=== PATIENT | female | born 1990 | race Caucasian/White ===

== ENCOUNTER 2022-09-30 21:02 | Inpatient (IN) | payer MEDICARE, MEDICAID ==
[~2022-09-30] VITALS: Ht 177.8 cm; Wt 79.4 kg
[2022-09-30] MEDS ORDERED: ARIP2TAB27 PO (22:00)
[2022-09-30 22:43] LABS: BASOPHILS % (AUTO) 0.3 % (0.0-2.0); EOSINOPHILS % (AUTO) 0.4 % (1.0-6.0); HEMATOCRIT 41.8 % (36-46); HEMOGLOBIN 14.6 g/dL (12.0-16.0); LYMPHOCYTES % (AUTO) 9.2 % (22.0-44.0); MEAN CORPUSCULAR HGB CONC 35.1 G/dL (31.0-37.0); MEAN CORPUSCULAR VOLUME 91 fL (80-100); MONOCYTES # (AUTO) 0.5 K/uL (0.1-1.0); MONOCYTES % (AUTO) 4.6 % (2.0-9.0); NEUTROPHILS # (AUTO) 9.3 K/uL (1.8-7.7); PLATELET COUNT (AUTO) 216 K/uL (150-450); RED BLOOD CELL COUNT(AUTO) 4.57 MIL/uL (4.00-5.20); RED CELL DISTRIBUTION WIDTH 13.1 % (11.5-14.5)
[2022-09-30 22:45] LABS: ANION GAP 8 mmol/L (8-16); CALCIUM, TOTAL 8.3 mg/dL (8.8-10.5); CARBON DIOXIDE 25 mmol/L (22-29); CHLORIDE 101 mmol/L (98-107); CREATININE 1.06 mg/dL (0.60-1.30); GLOMERULAR FILTR. RATE CALC 60 mL/min (>60); GLUCOSE,RANDOM 103 mg/dL (70-110); NEUTROPHILS % (AUTO) 85.5 % (40.0-70.0); POTASSIUM 3.4 mmol/L (3.5-5.1); SODIUM SERUM 134 mmol/L (136-145); UREA NITROGEN, BLOOD 14 mg/dL (7-18)
[2022-09-30 22:52] LABS: ALANINE AMINOTRANSFERASE 62 U/L (12-78); ALBUMIN 3.8 g/dL (3.4-5.0); ALKALINE PHOSPHATASE 106 U/L (46-116); ASPARTATE AMINOTRANSFERASE 33 U/L (15-37); BILIRUBIN,TOTAL 0.5 mg/dL (0.1-1.0); TOTAL PROTEIN, SERUM 6.9 g/dL (6.4-8.2)
[2022-10-01 02:47] LABS: COVID AG,FIA SOURCE NASAL SWAB
[2022-10-01] MEDS ORDERED: HALOPERIDOL 5 MG TABLET PO PRN (08:15)
[2022-10-01 13:11] VITALS: BP 96/67
[2022-10-01] MEDS: BusPIRone HCL 5 MG TABLET PO SCH ×2 (13:51→20:45)
[2022-10-01] MEDS: ZOLPIDEM TARTRATE 10 MG TABLET PO PRN (20:45)
[2022-10-01 20:53] VITALS: BP 110/68
[2022-10-02] MEDS: ARIPiprazole 10 MG TABLET PO SCH (09:21)
[2022-10-02] MEDS: BusPIRone HCL 5 MG TABLET PO SCH ×2 (09:21→21:11)
[2022-10-02 09:52] VITALS: BP 118/70
[2022-10-02] MEDS ORDERED: MAG HYDROX/AL HYDROX/SIMETH ES 30 ML SUSPENSION UDCUP PO PRN (10:15)
[2022-10-02] MEDS ORDERED: CloNIDine HCL 0.1 MG TABLET PO PRN (10:15)
[2022-10-02] MEDS ORDERED: ONDANSETRON HCL 4 MG TABLET PO PRN (10:15)
[2022-10-02] MEDS ORDERED: ACETAMINOPHEN 325 MG TABLET PO PRN (10:15)
[2022-10-02] MEDS ORDERED: GuaiFENesin/D-METHORPHAN [SUGAR-FREE] 200-20MG/10 ML SYRUP UDCUP PO PRN (10:15)
[2022-10-02] MEDS ORDERED: DOCUSATE SODIUM 100 MG CAPSULE PO PRN (10:15)
[2022-10-02] MEDS ORDERED: LOPERAMIDE HCL 2 MG CAPSULE PO PRN (10:15)
[2022-10-02] MEDS ORDERED: PETROLATUM,WHITE 28 GM JELLY TP PRN (10:15)
[2022-10-02] MEDS ORDERED: NICOTINE 14 MG/24 HOUR PATCH TD PRN (10:15)
[2022-10-02] MEDS ORDERED: MAGNESIUM HYDROXIDE SUSPENSION 30 ML UDCUP PO PRN (10:15)
[2022-10-02] MEDS ORDERED: IBUPROFEN 400 MG TABLET PO PRN (10:15)
[2022-10-02 16:47] VITALS: BP 108/75
[2022-10-02] MEDS: ZOLPIDEM TARTRATE 10 MG TABLET PO PRN (21:11)
[2022-10-02 22:02] VITALS: BP 124/66
[2022-10-03 08:43] VITALS: BP 113/87
[2022-10-03] MEDS: BusPIRone HCL 5 MG TABLET PO SCH ×2 (08:57→21:00)
[2022-10-03] MEDS: ARIPiprazole 10 MG TABLET PO SCH (08:57)
[2022-10-03] MEDS ORDERED: DiphenhydrAMINE HCL 50 MG/ML VIAL ONE (13:48)
[2022-10-03] MEDS ORDERED: LORazepam 2 MG/ML VIAL ONE (13:48)
[2022-10-03] MEDS ORDERED: HALOPERIDOL LACTATE 5 MG/ML VIAL ONE (13:48)
[2022-10-03] MEDS ORDERED: LORazepam 2 MG/ML VIAL IM ONE (14:00)
[2022-10-03] MEDS ORDERED: HALOPERIDOL LACTATE 5 MG/ML VIAL IM ONE (14:00)
[2022-10-03] MEDS ORDERED: DiphenhydrAMINE HCL 50 MG/ML VIAL IM ONE (14:00)
[2022-10-03] MEDS: BACITRACIN 28 GM OINTMENT TP SCH (18:44)
[2022-10-04] MEDS: ARIPiprazole 10 MG TABLET PO SCH (08:19)
[2022-10-04] MEDS: BACITRACIN 28 GM OINTMENT TP SCH ×2 (08:19→16:56)
[2022-10-04] MEDS: BusPIRone HCL 5 MG TABLET PO SCH ×2 (08:19→20:44)
[2022-10-04] MEDS: LORazepam 2 MG TABLET PO PRN (08:19)
[2022-10-04 08:20] VITALS: BP 119/77
[2022-10-04] MEDS ORDERED: LORazepam 2 MG/ML VIAL IM ONE ×2 (09:45→12:45)
[2022-10-04] MEDS ORDERED: ChlorproMAZINE HCL 50 MG/2 ML AMP IM ONE ×2 (09:45→12:45)
[2022-10-04] MEDS ORDERED: DiphenhydrAMINE HCL 50 MG/ML VIAL IM ONE ×2 (09:45→12:45)
[2022-10-05 08:06] VITALS: BP 101/72
[2022-10-05] MEDS: BACITRACIN 28 GM OINTMENT TP SCH ×2 (08:48→16:26)
[2022-10-05] MEDS: ARIPiprazole 10 MG TABLET PO SCH (08:48)
[2022-10-05] MEDS: BusPIRone HCL 5 MG TABLET PO SCH (08:48)
[2022-10-05] MEDS: LORazepam 2 MG TABLET PO PRN (09:55)
[2022-10-05] MEDS ORDERED: ARIPiprazole 10 MG TABLET PO ONE (10:15)
[2022-10-05] MEDS: TOPIRAMATE 25 MG TABLET PO SCH ×2 (11:13→16:26)
[2022-10-05] MEDS: VENLAFAXINE HCL 150 MG ER CAPSULE PO SCH (11:18)
[2022-10-05 16:18] VITALS: BP 115/63
[2022-10-05] MEDS: SPIRONOLACTONE 50 MG TABLET PO SCH (16:24)
[2022-10-05] MEDS: ESTRADIOL 1 MG TABLET PO SCH (16:25)
[2022-10-05] MEDS: BusPIRone HCL 15 MG TABLET PO SCH (16:25)
[2022-10-05] MEDS: LURASIDONE HCL 40 MG TABLET PO SCH (16:26)
[2022-10-05] MEDS ORDERED: PRAZOSIN HCL 2 MG CAPSULE PO SCH (21:00)
[2022-10-06] MEDS: TOPIRAMATE 25 MG TABLET PO SCH ×3 (07:59→16:56)
[2022-10-06] MEDS: BusPIRone HCL 15 MG TABLET PO SCH ×3 (08:00→16:56)
[2022-10-06] MEDS: ESTRADIOL 1 MG TABLET PO SCH ×3 (08:01→16:56)
[2022-10-06] MEDS: BACITRACIN 28 GM OINTMENT TP SCH ×3 (08:02→16:57)
[2022-10-06] MEDS: VENLAFAXINE HCL 150 MG ER CAPSULE PO SCH (08:02)
[2022-10-06] MEDS: SPIRONOLACTONE 50 MG TABLET PO SCH ×2 (08:02→16:44)
[2022-10-06 08:49] VITALS: BP 111/67
[2022-10-06] MEDS ORDERED: ARIPiprazole 15 MG TABLET PO SCH (09:00)
[2022-10-06] MEDS ORDERED: TOPI25 PO (13:04)
[2022-10-06] MEDS ORDERED: PRAZ2 PO (13:04)
[2022-10-06] MEDS ORDERED: ARIP30TA PO (13:04)
[2022-10-06] MEDS ORDERED: BUSP15 PO (13:04)
[2022-10-06] MEDS ORDERED: LURA40TA4 PO (13:04)
[2022-10-06] MEDS ORDERED: ESTR-95 PO (13:04)
[2022-10-06] MEDS ORDERED: VENL150C4 PO (13:04)
[2022-10-06] MEDS ORDERED: SPIR50TA PO (13:04)
[2022-10-06] MEDS: LURASIDONE HCL 40 MG TABLET PO SCH (16:57)
== END 2022-10-06 14:40 | disposition home or self-care (01) | DRG 885 ==
LOC: EMS 21:09 → 3EI 10-01 09:01 → 3EX 10-01 21:24 → 3EC 10-03 16:31
PROVIDERS: ADMIT Psychiatry & Neurology Psychiatry; ATTEND Psychiatry & Neurology Psychiatry
DX: F25.0 Schizoaffective disorder, bipolar type (principal); E87.1 Hypo-osmolality and hyponatremia; R45.851 Suicidal ideations; Z20.822 Contact with and (suspected) exposure to COVID-19; E87.6 Hypokalemia; F12.10 Cannabis abuse, uncomplicated; F43.12 Post-traumatic stress disorder, chronic; F64.0 Transsexualism; Z79.899 Other long term (current) drug therapy; Z87.891 Personal history of nicotine dependence; Z88.0 Allergy status to penicillin
CPT/HCPCS: 80053; 85025; 93005; 99285; G0378; G0480; J1200; J1630; J2060; J3230

== ENCOUNTER 2022-12-17 13:18 | Emergency (ER) | payer MEDICARE, MEDICAID ==
[~2022-12-17] VITALS: Ht 180.3 cm; Wt 84.5 kg
[~2022-12-17 13:18] MED LIST: ARIP30TA PO; BUSP15 PO; ESTR-95 PO; LURA40TA4 PO; PRAZ2 PO; SPIR50TA PO; TOPI25 PO; VENL150C4 PO
[2022-12-17 13:23] VITALS: BP 119/70
[2022-12-17] MEDS ORDERED: SPIR50TA27 PO ×3 (13:32→14:05)
[2022-12-17] MEDS ORDERED: PANT-31 PO ×3 (13:32→14:05)
[2022-12-17] MEDS ORDERED: CHLO50TA61 PO ×3 (13:32→14:05)
[2022-12-17] MEDS ORDERED: BUSP15 PO ×2 (13:51→14:05)
[2022-12-17] MEDS ORDERED: VENL150C4 PO ×2 (13:51→14:05)
[2022-12-17] MEDS ORDERED: ARIP30TA PO ×2 (13:51→14:05)
[2022-12-17] MEDS ORDERED: LEVAHFA IH ×2 (13:51→14:05)
[2022-12-17] MEDS ORDERED: ESTR-95 PO ×2 (13:51→14:05)
== END 2022-12-17 15:12 | disposition home or self-care (01) ==
LOC: EMS 13:33
DX: F25.0 Schizoaffective disorder, bipolar type (principal); F41.9 Anxiety disorder, unspecified; J45.909 Unspecified asthma, uncomplicated; F17.210 Nicotine dependence, cigarettes, uncomplicated; Z76.0 Encounter for issue of repeat prescription
CPT/HCPCS: 99281; Z7502

== ENCOUNTER 2023-03-09 12:30 | Inpatient (IN) | payer MEDICARE, MEDICAID ==
[~2023-03-09] VITALS: Ht 177.8 cm; Wt 79.9 kg
[~2023-03-09 12:30] MED LIST changes: +CHLO50TA61 PO; +LEVAHFA IH; -LURA40TA4 PO; +PANT-31 PO; -PRAZ2 PO; -SPIR50TA PO; +SPIR50TA27 PO; -TOPI25 PO
[2023-03-09] MEDS ORDERED: SODIUM CHLORIDE 0.9% 1,000 ML IV ONE (13:30)
[2023-03-09 13:37] LABS: BASOPHILS % (AUTO) 0.2 % (0.0-2.0); EOSINOPHILS % (AUTO) 0.1 % (1.0-6.0); HEMATOCRIT 42.8 % (36-46); HEMOGLOBIN 14.9 g/dL (12.0-16.0); LYMPHOCYTES % (AUTO) 9.9 % (22.0-44.0); MEAN CORPUSCULAR HEMOGLOBIN 32.1 pg (26.0-34.0); MEAN CORPUSCULAR HGB CONC 34.9 G/dL (31.0-37.0); MEAN CORPUSCULAR VOLUME 92 fL (80-100); MONOCYTES # (AUTO) 0.7 K/uL (0.1-1.0); MONOCYTES % (AUTO) 6.5 % (2.0-9.0); NEUTROPHILS # (AUTO) 8.6 K/uL (1.8-7.7); NEUTROPHILS % (AUTO) 83.3 % (40.0-70.0); PLATELET COUNT (AUTO) 212 K/uL (150-450); RED BLOOD CELL COUNT(AUTO) 4.65 MIL/uL (4.00-5.20); RED CELL DISTRIBUTION WIDTH 13.5 % (11.5-14.5)
[2023-03-09 13:51] LABS: ANION GAP 20 mmol/L (8-16); CALCIUM, TOTAL 9.1 mg/dL (8.8-10.5); CARBON DIOXIDE 21 mmol/L (22-29); CHLORIDE 101 mmol/L (98-107); CREATININE 2.03 mg/dL (0.60-1.30); GLOMERULAR FILTR. RATE CALC 28 mL/min (>60); GLUCOSE,RANDOM 109 mg/dL (70-110); POTASSIUM 3.8 mmol/L (3.5-5.1); SODIUM SERUM 142 mmol/L (136-145)
[2023-03-09 13:56] LABS: ALANINE AMINOTRANSFERASE 66 U/L (12-78); ALBUMIN 3.8 g/dL (3.4-5.0); ALKALINE PHOSPHATASE 100 U/L (46-116); ASPARTATE AMINOTRANSFERASE 27 U/L (15-37); BILIRUBIN,TOTAL 0.3 mg/dL (0.1-1.0); TOTAL PROTEIN, SERUM 7.5 g/dL (6.4-8.2)
[2023-03-09 14:05] LABS: INR 1.1 (0.9-1.1); SALICYLATE 0.9 mg/dL (2.8-20.0)
[2023-03-09 14:11] LABS: ACETAMINOPHEN < 2 mcg/mL (10-30); CREATINE KINASE, TOTAL ONLY 49 U/L (26-192); LIPASE 27 U/L (16-77)
[2023-03-09 14:18] LABS: COVID AG,FIA SOURCE NASOPHARYNGEAL
[2023-03-09] MEDS ORDERED: SODIUM CHLORIDE 0.9% 2,000 ML IV ONE (14:45)
[2023-03-09 15:53] LABS: AMPHET/METH SCREEN,URINE NEGATIVE (NEGATIVE); BARBITURATE SCREEN, URINE NEGATIVE (NEGATIVE); BENZODIAZEPINES SCREEN,URINE NEGATIVE (NEGATIVE); CANNABINOID SCREEN,URINE NEGATIVE (NEGATIVE); COCAINE SCREEN,URINE NEGATIVE (NEGATIVE); METHADONE SCREEN, URINE NEGATIVE (NEGATIVE); OPIATE SCREEN,URINE NEGATIVE (NEGATIVE); PHENCYCLIDINE SCREEN,URINE NEGATIVE (NEGATIVE)
[2023-03-09 17:22] LABS: CALCIUM, TOTAL 7.9 mg/dL (8.8-10.5); CREATININE 1.89 mg/dL (0.60-1.30); POTASSIUM 3.7 mmol/L (3.5-5.1)
[2023-03-09] MEDS ORDERED: POTASSIUM CHL 20 MEQ/D5-0.45NS 1,000 ML IV ONE (17:30)
[2023-03-09 17:38] LABS: INR 1.1 (0.9-1.1); PROTHROMBIN TIME 11.6 SEC (9.4-11.6)
[2023-03-09] MEDS ORDERED: PB/HYOSCY/ATR/SCOP/LIDO/MAALOX 55 ML BOTTLE PO ONE (17:45)
[2023-03-09] MEDS ORDERED: PANTOPRAZOLE SODIUM 40 MG DR TABLET PO ONE (17:45)
[2023-03-09 20:51] LABS: CALCIUM, TOTAL 8.2 mg/dL (8.8-10.5); CREATININE 1.76 mg/dL (0.60-1.30); POTASSIUM 3.7 mmol/L (3.5-5.1)
[2023-03-10] MEDS ORDERED: HALOPERIDOL 5 MG TABLET PO PRN (00:30)
[2023-03-10 14:00] VITALS: BP 98/73; PULSE 67; RESP 18; TEMP 97.6
[2023-03-10 16:49] LABS: CALCIUM, TOTAL 8.6 mg/dL (8.8-10.5); CREATININE 1.12 mg/dL (0.60-1.30); POTASSIUM 3.9 mmol/L (3.5-5.1)
[2023-03-10] MEDS: ESTRADIOL 1 MG TABLET PO SCH (18:11)
[2023-03-10] MEDS: SPIRONOLACTONE 50 MG TABLET PO SCH (18:12)
[2023-03-10] MEDS: TOPIRAMATE 25 MG TABLET PO SCH (18:12)
[2023-03-10 20:42] VITALS: RESP 18
[2023-03-10] MEDS: ZOLPIDEM TARTRATE 10 MG TABLET PO PRN (22:38)
[2023-03-11] MEDS ORDERED: NICOTINE 14 MG/24 HOUR PATCH TD PRN (04:30)
[2023-03-11] MEDS ORDERED: GuaiFENesin/D-METHORPHAN [SUGAR-FREE] 200-20MG/10 ML SYRUP UDCUP PO PRN (04:30)
[2023-03-11] MEDS ORDERED: MAG HYDROX/AL HYDROX/SIMETH ES 30 ML SUSPENSION UDCUP PO PRN (04:30)
[2023-03-11] MEDS ORDERED: DOCUSATE SODIUM 100 MG CAPSULE PO PRN (04:30)
[2023-03-11] MEDS ORDERED: MAGNESIUM HYDROXIDE SUSPENSION 30 ML UDCUP PO PRN (04:30)
[2023-03-11] MEDS ORDERED: PETROLATUM,WHITE 28 GM JELLY TP PRN (04:30)
[2023-03-11] MEDS ORDERED: IBUPROFEN 400 MG TABLET PO PRN (04:30)
[2023-03-11] MEDS ORDERED: ONDANSETRON HCL 4 MG TABLET PO PRN (04:30)
[2023-03-11] MEDS ORDERED: ACETAMINOPHEN 325 MG TABLET PO PRN (04:30)
[2023-03-11] MEDS ORDERED: LOPERAMIDE HCL 2 MG CAPSULE PO PRN (04:30)
[2023-03-11] MEDS ORDERED: CloNIDine HCL 0.1 MG TABLET PO PRN (04:30)
[2023-03-11] MEDS ORDERED: LEVALBUTEROL TARTRATE HFA 45 MCG/PUFF 15 GM INHALER IH PRN (04:30)
[2023-03-11] MEDS: ESTRADIOL 1 MG TABLET PO SCH ×2 (08:35→16:13)
[2023-03-11] MEDS: TOPIRAMATE 25 MG TABLET PO SCH ×2 (08:35→16:13)
[2023-03-11] MEDS: LORazepam 2 MG TABLET PO PRN ×2 (08:36→20:09)
[2023-03-11] MEDS: SPIRONOLACTONE 50 MG TABLET PO SCH ×2 (08:37→16:12)
[2023-03-11] MEDS: PANTOPRAZOLE SODIUM 40 MG DR TABLET PO SCH (08:39)
[2023-03-11 08:58] VITALS: BP 127/82; PULSE 74; RESP 17; TEMP 97.3
[2023-03-11] MEDS ORDERED: PANTOPRAZOLE SODIUM 40 MG DR TABLET PO SCH (09:00)
[2023-03-11] MEDS ORDERED: SPIRONOLACTONE 50 MG TABLET PO SCH (09:00)
[2023-03-11] MEDS: VENLAFAXINE HCL 150 MG ER CAPSULE PO SCH (13:11)
[2023-03-11] MEDS: ARIPiprazole 15 MG TABLET PO SCH (13:11)
[2023-03-11] MEDS: BusPIRone HCL 15 MG TABLET PO SCH (16:28)
[2023-03-11 20:14] VITALS: BP 100/65; PULSE 76; RESP 19; TEMP 98.4
[2023-03-11] MEDS: ZOLPIDEM TARTRATE 10 MG TABLET PO PRN (20:55)
[2023-03-11] MEDS ORDERED: ChlorproMAZINE HCL 50 MG TABLET PO SCH (21:00)
[2023-03-12] MEDS: SPIRONOLACTONE 50 MG TABLET PO SCH (09:00)
[2023-03-12] MEDS: BusPIRone HCL 15 MG TABLET PO SCH (09:08)
[2023-03-12] MEDS: VENLAFAXINE HCL 150 MG ER CAPSULE PO SCH (09:08)
[2023-03-12] MEDS: PANTOPRAZOLE SODIUM 40 MG DR TABLET PO SCH (09:09)
[2023-03-12] MEDS: ARIPiprazole 15 MG TABLET PO SCH (09:09)
[2023-03-12] MEDS: TOPIRAMATE 25 MG TABLET PO SCH (09:09)
[2023-03-12] MEDS: ESTRADIOL 1 MG TABLET PO SCH (09:09)
[2023-03-12 09:13] VITALS: BP 106/61; PULSE 79; RESP 18; TEMP 98
[2023-03-12] MEDS ORDERED: ESTR-95 PO ×2 (13:14→20:54)
[2023-03-12] MEDS ORDERED: SPIR50TA27 PO ×2 (13:14→20:54)
[2023-03-12] MEDS ORDERED: TOPI25 PO ×2 (13:15→20:54)
[2023-03-12] MEDS ORDERED: VENL-68 PO (20:54)
[2023-03-12] MEDS ORDERED: BUSP15 PO (20:54)
[2023-03-12] MEDS ORDERED: ARIP15TA27 PO (20:54)
[2023-03-12] MEDS ORDERED: CHLO50TA61 PO (20:54)
[2023-03-12] MEDS ORDERED: PANT-31 PO (20:54)
== END 2023-03-12 17:42 | disposition home or self-care (01) | DRG 885 ==
LOC: EMS 12:30 → 3EX 03-10 11:18
PROVIDERS: ADMIT Psychiatry & Neurology Psychiatry; ATTEND Psychiatry & Neurology Psychiatry
DX: F25.1 Schizoaffective disorder, depressive type (principal); N17.9 Acute kidney failure, unspecified; R45.851 Suicidal ideations; T39.312A Poisoning by propionic acid derivatives, intentional self-harm, initial encounter; F60.9 Personality disorder, unspecified; G40.909 Epilepsy, unspecified, not intractable, without status epilepticus; F64.0 Transsexualism; Z20.822 Contact with and (suspected) exposure to COVID-19; J45.909 Unspecified asthma, uncomplicated; F41.9 Anxiety disorder, unspecified; K21.9 Gastro-esophageal reflux disease without esophagitis; F43.10 Post-traumatic stress disorder, unspecified; Z79.899 Other long term (current) drug therapy; Z88.0 Allergy status to penicillin; Z88.8 Allergy status to other drugs, medicaments and biological substances; Z87.891 Personal history of nicotine dependence; Y92.89 Other specified places as the place of occurrence of the external cause
CPT/HCPCS: 71045; 80048; 80053; 80307; 82550; 83605; 83690; 84703; 85025; 85610; 93005; 99291; G0378; G0480; G0481; J3480; J7030; 36415-L1; 36415-TC

== ENCOUNTER 2023-03-14 23:56 | Inpatient (IN) | payer MEDICARE, MEDICAID ==
[~2023-03-14] VITALS: Ht 177.8 cm; Wt 80.0 kg
[~2023-03-14 23:56] MED LIST changes: +ARIP15TA27 PO; -LEVAHFA IH; +TOPI25 PO; +VENL-68 PO
[2023-03-15 01:55] LABS: BASOPHILS % (AUTO) 0.4 % (0.0-2.0); EOSINOPHILS % (AUTO) 0.7 % (1.0-6.0); HEMATOCRIT 40.1 % (36-46); LYMPHOCYTES # (AUTO) 1.1 K/uL (1.0-4.8); LYMPHOCYTES % (AUTO) 8.4 % (22.0-44.0); MEAN CORPUSCULAR HEMOGLOBIN 31.9 pg (26.0-34.0); MEAN CORPUSCULAR VOLUME 91 fL (80-100); MONOCYTES % (AUTO) 7.3 % (2.0-9.0); NEUTROPHILS # (AUTO) 11.4 K/uL (1.8-7.7); NEUTROPHILS % (AUTO) 83.2 % (40.0-70.0); PLATELET COUNT (AUTO) 184 K/uL (150-450); RED BLOOD CELL COUNT(AUTO) 4.39 MIL/uL (4.00-5.20); RED CELL DISTRIBUTION WIDTH 13.2 % (11.5-14.5)
[2023-03-15 02:11] LABS: ANION GAP 7 mmol/L (8-16); CALCIUM, TOTAL 9.2 mg/dL (8.8-10.5); CARBON DIOXIDE 29 mmol/L (22-29); CHLORIDE 101 mmol/L (98-107); GLOMERULAR FILTR. RATE CALC 58 mL/min (>60); GLUCOSE,RANDOM 116 mg/dL (70-110); POTASSIUM 3.9 mmol/L (3.5-5.1); SODIUM SERUM 137 mmol/L (136-145)
[2023-03-15 02:16] LABS: ALANINE AMINOTRANSFERASE 23 U/L (12-78); ALBUMIN 3.6 g/dL (3.4-5.0); ALKALINE PHOSPHATASE 102 U/L (46-116); ASPARTATE AMINOTRANSFERASE 14 U/L (15-37); BILIRUBIN,TOTAL 0.6 mg/dL (0.1-1.0); TOTAL PROTEIN, SERUM 7.7 g/dL (6.4-8.2)
[2023-03-15 05:03] LABS: COVID AG,FIA SOURCE NASOPHARYNGEAL
[2023-03-15] MEDS ORDERED: HALOPERIDOL 5 MG TABLET PO PRN (07:00)
[2023-03-15] MEDS ORDERED: LORazepam 2 MG TABLET PO PRN (07:00)
[2023-03-15 13:37] VITALS: BP 105/72; PULSE 95; RESP 16; TEMP 98; O2SAT 100
[2023-03-15 20:04] VITALS: BP 115/74; PULSE 66; RESP 18; TEMP 97.9; O2SAT 100
[2023-03-15] MEDS ORDERED: PANTOPRAZOLE SODIUM 40 MG DR TABLET PO ONE (22:00)
[2023-03-15] MEDS: MAG HYDROX/AL HYDROX/SIMETH 30 ML SUSP UDCUP PO PRN ×2 (22:23→22:31)
[2023-03-15] MEDS: ZOLPIDEM TARTRATE 10 MG TABLET PO PRN (22:30)
[2023-03-16] MEDS: PANTOPRAZOLE SODIUM 40 MG DR TABLET PO SCH (09:27)
[2023-03-16] MEDS: TOPIRAMATE 25 MG TABLET PO SCH ×2 (09:27→17:19)
[2023-03-16] MEDS: VENLAFAXINE HCL 150 MG ER CAPSULE PO SCH (09:28)
[2023-03-16] MEDS: ARIPiprazole 15 MG TABLET PO SCH (09:28)
[2023-03-16] MEDS: BusPIRone HCL 15 MG TABLET PO SCH ×2 (09:28→21:36)
[2023-03-16 09:33] VITALS: RESP 18
[2023-03-16 21:05] VITALS: BP 99/66; PULSE 63; RESP 20; TEMP 97.6; O2SAT 98
[2023-03-16] MEDS: ZOLPIDEM TARTRATE 10 MG TABLET PO PRN (21:36)
[2023-03-16] MEDS: ChlorproMAZINE HCL 50 MG TABLET PO SCH (21:36)
[2023-03-17] MEDS: ARIPiprazole 15 MG TABLET PO SCH (08:35)
[2023-03-17] MEDS: VENLAFAXINE HCL 150 MG ER CAPSULE PO SCH (08:36)
[2023-03-17] MEDS: BusPIRone HCL 15 MG TABLET PO SCH ×2 (08:36→20:05)
[2023-03-17] MEDS: TOPIRAMATE 25 MG TABLET PO SCH ×2 (08:36→16:05)
[2023-03-17] MEDS: PANTOPRAZOLE SODIUM 40 MG DR TABLET PO SCH (08:37)
[2023-03-17 09:06] LABS: COVID AG,FIA SOURCE NASAL SWAB
[2023-03-17 09:20] VITALS: BP 116/82; PULSE 68; RESP 18; TEMP 97.4; O2SAT 96
[2023-03-17] MEDS: SPIRONOLACTONE 50 MG TABLET PO SCH (18:18)
[2023-03-17] MEDS: ESTRADIOL 1 MG TABLET PO SCH (18:18)
[2023-03-17] MEDS: ChlorproMAZINE HCL 50 MG TABLET PO SCH (20:05)
[2023-03-17] MEDS: ZOLPIDEM TARTRATE 10 MG TABLET PO PRN (20:05)
[2023-03-17 20:50] VITALS: BP 98/61; PULSE 77; RESP 18; TEMP 98.1; O2SAT 97
[2023-03-18 09:16] VITALS: BP 95/62; PULSE 63; RESP 18; TEMP 97.6; O2SAT 99
[2023-03-18] MEDS: ESTRADIOL 1 MG TABLET PO SCH ×2 (09:42→16:16)
[2023-03-18] MEDS: ARIPiprazole 15 MG TABLET PO SCH (09:43)
[2023-03-18] MEDS: SPIRONOLACTONE 50 MG TABLET PO SCH ×2 (09:43→16:16)
[2023-03-18] MEDS: BusPIRone HCL 15 MG TABLET PO SCH ×2 (09:44→20:37)
[2023-03-18] MEDS: VENLAFAXINE HCL 150 MG ER CAPSULE PO SCH (09:44)
[2023-03-18] MEDS: PANTOPRAZOLE SODIUM 40 MG DR TABLET PO SCH (09:44)
[2023-03-18] MEDS: TOPIRAMATE 25 MG TABLET PO SCH ×2 (09:45→16:16)
[2023-03-18] MEDS: ChlorproMAZINE HCL 50 MG TABLET PO SCH (20:37)
[2023-03-18] MEDS: ZOLPIDEM TARTRATE 10 MG TABLET PO PRN (20:37)
[2023-03-18 20:49] VITALS: BP 98/61; PULSE 63; RESP 18; TEMP 98.3; O2SAT 98
[2023-03-19 01:00] VITALS: TEMP 98.1
[2023-03-19 04:21] VITALS: TEMP 97.9
[2023-03-19] MEDS: BusPIRone HCL 15 MG TABLET PO SCH ×2 (09:27→21:42)
[2023-03-19] MEDS: TOPIRAMATE 25 MG TABLET PO SCH ×2 (09:27→18:35)
[2023-03-19] MEDS: ARIPiprazole 15 MG TABLET PO SCH (09:27)
[2023-03-19] MEDS: SPIRONOLACTONE 50 MG TABLET PO SCH ×2 (09:27→18:35)
[2023-03-19] MEDS: VENLAFAXINE HCL 150 MG ER CAPSULE PO SCH (09:28)
[2023-03-19] MEDS: PANTOPRAZOLE SODIUM 40 MG DR TABLET PO SCH (09:29)
[2023-03-19 10:12] VITALS: BP 88/61; PULSE 76; RESP 17; TEMP 98; O2SAT 100
[2023-03-19] MEDS: ESTRADIOL 1 MG TABLET PO SCH ×2 (11:17→18:35)
[2023-03-19 12:57] VITALS: TEMP 98.8
[2023-03-19 16:35] VITALS: TEMP 98.7
[2023-03-19 21:40] VITALS: BP 104/68; PULSE 72; RESP 18; TEMP 97.9; O2SAT 99
[2023-03-19] MEDS: ChlorproMAZINE HCL 50 MG TABLET PO SCH (21:43)
[2023-03-19] MEDS: ZOLPIDEM TARTRATE 10 MG TABLET PO PRN (21:44)
[2023-03-20] MEDS: ARIPiprazole 15 MG TABLET PO SCH (08:05)
[2023-03-20] MEDS: TOPIRAMATE 25 MG TABLET PO SCH ×2 (08:05→16:43)
[2023-03-20] MEDS: BusPIRone HCL 15 MG TABLET PO SCH ×2 (08:06→21:19)
[2023-03-20] MEDS: VENLAFAXINE HCL 150 MG ER CAPSULE PO SCH (08:06)
[2023-03-20] MEDS: SPIRONOLACTONE 50 MG TABLET PO SCH ×2 (08:06→16:42)
[2023-03-20] MEDS: ESTRADIOL 1 MG TABLET PO SCH ×2 (08:07→16:42)
[2023-03-20] MEDS: PANTOPRAZOLE SODIUM 40 MG DR TABLET PO SCH (08:08)
[2023-03-20 08:51] VITALS: BP 103/66; PULSE 87; RESP 16; TEMP 98.3; O2SAT 98
[2023-03-20 13:20] VITALS: BP 103/67; PULSE 85; RESP 17; TEMP 97.9; O2SAT 97
[2023-03-20 16:07] VITALS: BP 106/68; PULSE 88; RESP 16; TEMP 98; O2SAT 98
[2023-03-20] MEDS: ChlorproMAZINE HCL 50 MG TABLET PO SCH (21:19)
[2023-03-20] MEDS: ZOLPIDEM TARTRATE 10 MG TABLET PO PRN (21:20)
[2023-03-20 22:46] VITALS: BP 105/71; PULSE 77; RESP 18; TEMP 97.1; O2SAT 98
[2023-03-21] MEDS: SPIRONOLACTONE 50 MG TABLET PO SCH ×2 (08:49→16:40)
[2023-03-21] MEDS: BusPIRone HCL 15 MG TABLET PO SCH ×2 (08:49→21:26)
[2023-03-21] MEDS: ESTRADIOL 1 MG TABLET PO SCH ×2 (08:49→16:40)
[2023-03-21] MEDS: ARIPiprazole 15 MG TABLET PO SCH (08:49)
[2023-03-21] MEDS: TOPIRAMATE 25 MG TABLET PO SCH ×2 (08:50→16:40)
[2023-03-21] MEDS: VENLAFAXINE HCL 150 MG ER CAPSULE PO SCH (08:50)
[2023-03-21] MEDS: PANTOPRAZOLE SODIUM 40 MG DR TABLET PO SCH (08:50)
[2023-03-21 09:43] VITALS: BP 98/60; PULSE 73; RESP 17; TEMP 98.4
[2023-03-21 13:05] VITALS: BP 102/66; PULSE 82; RESP 18; TEMP 98; O2SAT 98
[2023-03-21 16:51] VITALS: RESP 16; TEMP 98.1
[2023-03-21] MEDS: ChlorproMAZINE HCL 50 MG TABLET PO SCH (21:26)
[2023-03-21] MEDS: ZOLPIDEM TARTRATE 10 MG TABLET PO PRN (21:28)
[2023-03-21 22:10] VITALS: BP 97/68; PULSE 86; RESP 18; TEMP 98.1; O2SAT 97
[2023-03-22 01:47] VITALS: RESP 18
[2023-03-22 05:09] VITALS: RESP 18
[2023-03-22 08:22] VITALS: BP 104/69; PULSE 74; RESP 18; TEMP 97.8
[2023-03-22] MEDS: ESTRADIOL 1 MG TABLET PO SCH ×2 (08:37→16:45)
[2023-03-22] MEDS: VENLAFAXINE HCL 150 MG ER CAPSULE PO SCH (08:38)
[2023-03-22] MEDS: SPIRONOLACTONE 50 MG TABLET PO SCH ×2 (08:38→16:45)
[2023-03-22] MEDS: TOPIRAMATE 25 MG TABLET PO SCH ×2 (08:38→16:45)
[2023-03-22] MEDS: BusPIRone HCL 15 MG TABLET PO SCH ×2 (08:38→21:19)
[2023-03-22] MEDS: ARIPiprazole 15 MG TABLET PO SCH (08:38)
[2023-03-22] MEDS: PANTOPRAZOLE SODIUM 40 MG DR TABLET PO SCH (08:39)
[2023-03-22 12:12] VITALS: RESP 18; TEMP 98
[2023-03-22 16:07] VITALS: RESP 17; TEMP 97.8
[2023-03-22 20:29] VITALS: BP 103/65; PULSE 89; RESP 18; TEMP 97.7
[2023-03-22] MEDS: ZOLPIDEM TARTRATE 10 MG TABLET PO PRN (21:19)
[2023-03-22] MEDS: ChlorproMAZINE HCL 50 MG TABLET PO SCH (21:19)
[2023-03-23 00:15] VITALS: RESP 18
[2023-03-23 04:06] VITALS: RESP 18
[2023-03-23 08:30] VITALS: BP 105/71; PULSE 92; RESP 18; TEMP 97.6
[2023-03-23] MEDS: TOPIRAMATE 25 MG TABLET PO SCH ×2 (11:02→17:32)
[2023-03-23] MEDS: ESTRADIOL 1 MG TABLET PO SCH ×2 (11:03→17:31)
[2023-03-23] MEDS: VENLAFAXINE HCL 150 MG ER CAPSULE PO SCH (11:03)
[2023-03-23] MEDS: ARIPiprazole 15 MG TABLET PO SCH (11:03)
[2023-03-23] MEDS: PANTOPRAZOLE SODIUM 40 MG DR TABLET PO SCH (11:03)
[2023-03-23] MEDS: BusPIRone HCL 15 MG TABLET PO SCH ×2 (11:04→20:18)
[2023-03-23] MEDS: SPIRONOLACTONE 50 MG TABLET PO SCH ×2 (11:04→17:31)
[2023-03-23] MEDS: ChlorproMAZINE HCL 50 MG TABLET PO SCH (11:05)
[2023-03-23 12:30] VITALS: RESP 18; TEMP 97.6
[2023-03-23 16:30] VITALS: RESP 18; TEMP 98
[2023-03-23] MEDS: ZOLPIDEM TARTRATE 10 MG TABLET PO PRN (20:35)
[2023-03-23 21:34] VITALS: BP 98/66; PULSE 92; RESP 19; TEMP 98.3; O2SAT 97
[2023-03-24 00:22] VITALS: BP 110/80; PULSE 90; RESP 18; TEMP 98.2; O2SAT 98
[2023-03-24 05:19] VITALS: TEMP 98; O2SAT 97
[2023-03-24] MEDS: ARIPiprazole 15 MG TABLET PO SCH (07:49)
[2023-03-24] MEDS: ESTRADIOL 1 MG TABLET PO SCH ×2 (07:49→15:57)
[2023-03-24] MEDS: TOPIRAMATE 25 MG TABLET PO SCH ×2 (07:49→15:57)
[2023-03-24] MEDS: VENLAFAXINE HCL 150 MG ER CAPSULE PO SCH (07:50)
[2023-03-24] MEDS: SPIRONOLACTONE 50 MG TABLET PO SCH ×2 (07:50→15:57)
[2023-03-24] MEDS: BusPIRone HCL 15 MG TABLET PO SCH ×2 (07:51→21:03)
[2023-03-24] MEDS: PANTOPRAZOLE SODIUM 40 MG DR TABLET PO SCH (07:52)
[2023-03-24 08:07] VITALS: BP 101/76; PULSE 89; RESP 17; TEMP 97.9; O2SAT 97
[2023-03-24 12:26] VITALS: RESP 18; TEMP 98.1
[2023-03-24 16:34] VITALS: TEMP 98
[2023-03-24] MEDS: NICOTINE 7 MG/24 HOUR PATCH TD SCH (18:15)
[2023-03-24] MEDS: ChlorproMAZINE HCL 50 MG TABLET PO SCH (21:03)
[2023-03-24] MEDS: ZOLPIDEM TARTRATE 10 MG TABLET PO PRN (21:04)
[2023-03-24 21:29] VITALS: BP 101/72; PULSE 83; RESP 18; TEMP 97.8; O2SAT 97
[2023-03-25] VITALS (7 sets, daily range): BP systolic 108–116; BP diastolic 68–85; PULSE 81–85; RESP 17–19; TEMP 97.1–98.3; O2SAT 97–98
[2023-03-25] MEDS: ESTRADIOL 1 MG TABLET PO SCH ×2 (08:37→16:46)
[2023-03-25] MEDS: ARIPiprazole 15 MG TABLET PO SCH (08:38)
[2023-03-25] MEDS: SPIRONOLACTONE 50 MG TABLET PO SCH ×2 (08:38→16:46)
[2023-03-25] MEDS: TOPIRAMATE 25 MG TABLET PO SCH ×2 (08:38→16:46)
[2023-03-25] MEDS: PANTOPRAZOLE SODIUM 40 MG DR TABLET PO SCH (08:39)
[2023-03-25] MEDS: VENLAFAXINE HCL 150 MG ER CAPSULE PO SCH (08:39)
[2023-03-25] MEDS: BusPIRone HCL 15 MG TABLET PO SCH ×2 (08:39→20:59)
[2023-03-25] MEDS: NICOTINE 7 MG/24 HOUR PATCH TD SCH (08:40)
[2023-03-25 08:45] LABS: APPEARANCE,URINE CLEAR (CLEAR); BILIRUBIN,URINE NEGATIVE (NEGATIVE); GLUCOSE, URINE (UA) NEGATIVE (NEGATIVE); KETONES,URINE TRACE mg/dL (NEGATIVE); LEUKOCYTE ESTERASE ,URINE NEGATIVE (NEGATIVE); NITRATE,URINE NEGATIVE (NEGATIVE); OCCULT BLOOD,URINE NEGATIVE (NEGATIVE); PH,URINE 5.5 (5.0-8.0); PROTEIN,URINE NEGATIVE (NEGATIVE); SPECIFIC GRAVITIY, URINE 1.026 (1.003-1.030); UROBILINOGEN,URINE <=1.0 mg/dL (<=1.0)
[2023-03-25 08:54] LABS: AMPHET/METH SCREEN,URINE NEGATIVE (NEGATIVE); BARBITURATE SCREEN, URINE NEGATIVE (NEGATIVE); BENZODIAZEPINES SCREEN,URINE NEGATIVE (NEGATIVE); CANNABINOID SCREEN,URINE POSITIVE (NEGATIVE); COCAINE SCREEN,URINE NEGATIVE (NEGATIVE); METHADONE SCREEN, URINE NEGATIVE (NEGATIVE); OPIATE SCREEN,URINE NEGATIVE (NEGATIVE); PHENCYCLIDINE SCREEN,URINE NEGATIVE (NEGATIVE)
[2023-03-25] MEDS: ChlorproMAZINE HCL 50 MG TABLET PO SCH (20:59)
[2023-03-25] MEDS: ZOLPIDEM TARTRATE 10 MG TABLET PO PRN (20:59)
[2023-03-26 00:43] VITALS: RESP 18; TEMP 97
[2023-03-26 04:02] VITALS: RESP 18; TEMP 97.8
[2023-03-26 08:28] VITALS: BP 114/69; PULSE 77; RESP 18; TEMP 98
[2023-03-26] MEDS: NICOTINE 7 MG/24 HOUR PATCH TD SCH (09:00)
[2023-03-26] MEDS: TOPIRAMATE 25 MG TABLET PO SCH ×2 (10:16→16:07)
[2023-03-26] MEDS: BusPIRone HCL 15 MG TABLET PO SCH ×2 (10:17→20:48)
[2023-03-26] MEDS: SPIRONOLACTONE 50 MG TABLET PO SCH ×2 (10:17→16:07)
[2023-03-26] MEDS: VENLAFAXINE HCL 150 MG ER CAPSULE PO SCH (10:17)
[2023-03-26] MEDS: ARIPiprazole 15 MG TABLET PO SCH (10:17)
[2023-03-26] MEDS: ESTRADIOL 1 MG TABLET PO SCH ×2 (10:18→16:07)
[2023-03-26] MEDS: PANTOPRAZOLE SODIUM 40 MG DR TABLET PO SCH (10:19)
[2023-03-26 12:08] VITALS: RESP 17; TEMP 97.8
[2023-03-26 16:00] VITALS: RESP 18; TEMP 98
[2023-03-26 20:02] VITALS: BP 115/69; PULSE 89; RESP 18; TEMP 97.6
[2023-03-26] MEDS: ZOLPIDEM TARTRATE 10 MG TABLET PO PRN (20:48)
[2023-03-26] MEDS: ChlorproMAZINE HCL 50 MG TABLET PO SCH (20:48)
[2023-03-27 02:43] VITALS: RESP 18; TEMP 98
[2023-03-27 04:49] VITALS: RESP 18; TEMP 97.6
[2023-03-27] MEDS: ESTRADIOL 1 MG TABLET PO SCH (08:45)
[2023-03-27] MEDS: SPIRONOLACTONE 50 MG TABLET PO SCH (08:46)
[2023-03-27] MEDS: VENLAFAXINE HCL 150 MG ER CAPSULE PO SCH (08:46)
[2023-03-27] MEDS: ARIPiprazole 15 MG TABLET PO SCH (08:46)
[2023-03-27] MEDS: PANTOPRAZOLE SODIUM 40 MG DR TABLET PO SCH (08:46)
[2023-03-27] MEDS: BusPIRone HCL 15 MG TABLET PO SCH (08:46)
[2023-03-27] MEDS: TOPIRAMATE 25 MG TABLET PO SCH (08:46)
[2023-03-27] MEDS: NICOTINE 7 MG/24 HOUR PATCH TD SCH (08:50)
[2023-03-27 08:57] VITALS: BP 104/62; PULSE 72; RESP 18; TEMP 97.5; O2SAT 100
[2023-03-27] MEDS ORDERED: ESTR-95 PO (11:42)
[2023-03-27] MEDS ORDERED: PANT-31 PO (11:48)
[2023-03-27] MEDS ORDERED: BUSP15 PO (19:06)
[2023-03-27] MEDS ORDERED: CHLO50TA61 PO (19:06)
[2023-03-27] MEDS ORDERED: VENL150C4 PO (19:06)
[2023-03-27] MEDS ORDERED: TOPI25 PO (19:06)
[2023-03-27] MEDS ORDERED: ARIP15TA27 PO (19:06)
== END 2023-03-27 15:09 | disposition home or self-care (01) | DRG 885 ==
LOC: EMS 03-15 00:04 → 3EX 03-15 11:58
PROVIDERS: ADMIT Psychiatry & Neurology Psychiatry; ATTEND Psychiatry & Neurology Psychiatry
DX: F25.1 Schizoaffective disorder, depressive type (principal); R45.851 Suicidal ideations; F60.9 Personality disorder, unspecified; J45.909 Unspecified asthma, uncomplicated; K21.9 Gastro-esophageal reflux disease without esophagitis; F10.10 Alcohol abuse, uncomplicated; D72.829 Elevated white blood cell count, unspecified; Z20.822 Contact with and (suspected) exposure to COVID-19; F64.0 Transsexualism; F41.9 Anxiety disorder, unspecified; G40.909 Epilepsy, unspecified, not intractable, without status epilepticus; F31.9 Bipolar disorder, unspecified; F43.10 Post-traumatic stress disorder, unspecified; Z88.0 Allergy status to penicillin; Z88.8 Allergy status to other drugs, medicaments and biological substances; Z79.899 Other long term (current) drug therapy; Z87.891 Personal history of nicotine dependence
CPT/HCPCS: 80053; 80307; 81003; 85025; 99285; G0378; G0480